=== PATIENT | male | born 1985 | race African-American/Black ===

== ENCOUNTER 2019-03-16 07:49 | Emergency (ER) | payer MEDICAID ==
[~2019-03-16] VITALS: Ht 172.7 cm; Wt 69.0 kg
[2019-03-16] MEDS ORDERED: KETOROLAC 15MG/ML VIAL IM ONE (09:15)
[2019-03-16 10:24] VITALS: BP 120/58
== END 2019-03-16 10:45 | disposition home or self-care (01) ==
LOC: ER 07:59
DX: M54.9 Dorsalgia, unspecified (principal); F17.200 Nicotine dependence, unspecified, uncomplicated
CPT/HCPCS: 96372; 99283; J1885; Z7610

== ENCOUNTER 2024-06-26 03:59 | Emergency (ER) | payer MEDICAID ==
[~2024-06-26] VITALS: Ht 170.2 cm; Wt 68.0 kg
[2024-06-26 04:07] VITALS: BP 118/76; TEMP 98.6; O2SAT 76
[2024-06-26] MEDS ORDERED: OCUFLX EACHEYE (05:16)
[2024-06-26 05:42] VITALS: PULSE 86; RESP 17; O2SAT 98
== END 2024-06-26 05:43 | disposition home or self-care (01) ==
LOC: ER 03:59
DX: H57.13 Ocular pain, bilateral (principal)
CPT/HCPCS: 99283